=== PATIENT | female | born 1990 | race Caucasian/White ===

== ENCOUNTER 2020-07-15 23:25 | Inpatient (IN) | payer OTHER ==
[2020-07-16] MEDS ORDERED: ELECTROLYTE-148 SOLN 500 ML IV ONE
[2020-07-16] MEDS ORDERED: ELECTROLYTE-148 SOLN 1,000 ML IV SCH ×3 (01:00→20:30)
[2020-07-16] MEDS ORDERED: PROMETHAZINE HCL 25 MG/1 ML VIAL IVPB ONE (01:55)
[2020-07-16] MEDS ORDERED: BUTORPHANOL TARTRATE 2 MG/ML VIAL IVPB ONE (01:55)
[2020-07-16] MEDS ORDERED: BUTORPHANOL TARTRATE 2 MG/ML VIAL ONE (02:05)
[2020-07-16] MEDS ORDERED: PROMETHAZINE HCL 25 MG/1 ML VIAL ONE (02:06)
[2020-07-16] MEDS ORDERED: AMPICILLIN - 2 GM in SODIUM CHLORIDE 100 ML IVPB ONE (08:54)
[2020-07-16] MEDS ORDERED: FENTANYL/BUPIVACAINE/NS/PF - PCEA - 50 ML DISP.SYRIN EP ONE ×3 (08:57→17:24)
[2020-07-16] MEDS ORDERED: SODIUM CHLORIDE 100 ML IVPB ONE ×3 (08:57→16:22)
[2020-07-16] MEDS ORDERED: PCA PUMP NR ONE ×3 (08:57→20:48)
[2020-07-16] MEDS ORDERED: AMPICILLIN SODIUM 2 GM VIAL ONE (08:57)
[2020-07-16 09:37] LABS: BASO % 0.2 % (0-2.0); HEMATOCRIT 33.9 % (32.4-45.2); HEMOGLOBIN 11.2 GM/dL (10.7-15.3); LYMPH % 5.5 % (8-40); MCH 27.2 pg (25.7-33.7); MEAN CELL VOLUME 82.3 fl (80-96); MEAN PLT VOLUME 7.6 fl (7.5-11.1); MONO % 2.4 % (3.8-10.2); NEUT % 91.9 % (42.8-82.8); PLATELET COUNT 291 K/MM3 (134-434); RBC 4.12 M/mm3 (3.60-5.2); RDW 14.5 % (11.6-15.6); WHITE BLOOD COUNT 14.2 K/mm3 (4.0-10.0)
[2020-07-16 09:45] LABS: INR 0.92 (0.83-1.09); PROTHROMBIN TIME (PATIENT) 11.3 SEC (9.7-13.0)
[2020-07-16] MEDS: FENTANYL/BUPIVACAINE/NS/PF - PCEA - 50 ML DISP.SYRIN EP SCH ×3 (09:45→17:36)
[2020-07-16 09:48] LABS: ACTIVATED PTT 25.9 SECONDS (25.2-36.5)
[2020-07-16 09:57] LABS: POTASSIUM 3.5 mmol/L (3.5-5.1)
[2020-07-16 10:00] LABS: CALCIUM 8.4 mg/dL (8.5-10.1)
[2020-07-16 10:03] LABS: CREATININE 0.6 mg/dL (0.55-1.3)
[2020-07-16 10:10] VITALS: BMI 29.4
[2020-07-16] MEDS: ELECTROLYTE-148 SOLN 1,000 ML IV SCH ×2 (10:20→15:20)
[2020-07-16] MEDS ORDERED: NALOXONE HCL 0.4 MG/ML VIAL IVPUSH PRN (10:42)
[2020-07-16 11:45] LABS: ANISOCYTOSIS 0; MACROCYTOSIS 0; PLATELET ESTIMATE NORMAL
[2020-07-16] MEDS ORDERED: AMPICILLIN SODIUM 1 GM VIAL ONE ×2 (12:38→16:22)
[2020-07-16] MEDS: AMPICILLIN - 1 GM in SODIUM CHLORIDE 100 ML IVPB SCH ×2 (12:47→16:30)
[2020-07-16] MEDS ORDERED: BUPIVACAINE HCL/PF 0.25% (2.5MG/ML) 10 ML VIAL ONE ×3 (13:51→18:10)
[2020-07-16] MEDS ORDERED: CITRIC ACID/SODIUM CITRATE 30 ML UNIT-DOSE CUP PO ONE (20:31)
[2020-07-16] MEDS ORDERED: CEFAZOLIN 2 GM/D5W 2 GM/50 ML ML IVPB ONE (20:47)
[2020-07-16] MEDS ORDERED: OXYTOCIN 20 UNITS in 0.9% NS 20 UNIT/1,000 ML INFUS.BAG IV ONE ×2 (20:48→23:49)
[2020-07-16] MEDS ORDERED: LIDO 2%/EPI 1:200000 PRESRVFRE (20 ML SDVIAL) ONE (20:48)
[2020-07-16] MEDS ORDERED: ONDANSETRON 4 MG/2 ML VIAL ONE (21:00)
[2020-07-16] MEDS ORDERED: KETOROLAC TROMETHAMINE 30 MG/1 ML VIAL ONE (21:00)
[2020-07-16] MEDS ORDERED: morphine SULFATE/PF 0.5 MG/ML (2cc Syringe - QUVA) ONE ×3 (21:06)
[2020-07-16] MEDS ORDERED: OXYTOCIN 10 UNITS/ML VIAL ONE (21:11)
[2020-07-16 21:51] LABS: CORD BASE EXCESS -2.3 mmol/L (0-2); CORD HCO3 23.7 mmHg (20-29); CORD PCO2 44.9 mmHg (30-78); CORD pH 7.34 (7.14-7.44)
[2020-07-16] MEDS ORDERED: METHYLERGONOVINE MALEATE 0.2 MG/1 ML AMP IM PRN (21:54)
[2020-07-16] MEDS ORDERED: IBUPROFEN 800 MG/8 ML IJ IVPB PRN (21:54)
[2020-07-16] MEDS ORDERED: oxyCODONE HCL 5 MG TABLET PO PRN ×2 (21:54)
[2020-07-16] MEDS ORDERED: BENZOCAINE 20% 57 GM BOTTLE TP PRN (21:54)
[2020-07-16] MEDS ORDERED: diphenhydrAMINE HCL 25 MG CAPSULE (FP) PO PRN (21:54)
[2020-07-16] MEDS ORDERED: IBUPROFEN 600 MG TABLET (FP) PO PRN (21:54)
[2020-07-16] MEDS ORDERED: WITCH HAZEL 50% (TUCKS) 40 PAD/JAR PAD TP PRN (21:54)
[2020-07-16] MEDS ORDERED: BENZOCAINE 28 GM HEMORRHOIDAL OINTMENT PR PRN (21:54)
[2020-07-16] MEDS ORDERED: ONDANSETRON 4 MG/2 ML VIAL IVPUSH PRN (21:58)
[2020-07-16] MEDS ORDERED: DEXTROSE 5%-LACTATED RINGERS 1,000 ML IV SCH (22:00)
[2020-07-16] MEDS ORDERED: OXYTOCIN 20 UNITS in 0.9% NS 20 UNIT/1,000 ML INFUS.BAG IV SCH (22:00)
[2020-07-16 22:13] LABS: CORD HCO3 23.4 mmHg (20-29); CORD PCO2 56.1 mmHg (30-78); CORD pH 7.239 (7.14-7.44)
[2020-07-17] MEDS: AMPICILLIN - 1 GM in SODIUM CHLORIDE 100 ML IVPB SCH (03:31)
[2020-07-17] MEDS: CEFAZOLIN 1 GM/D5W 1 GM/50 ML BAG IVPB SCH ×2 (05:58→14:33)
[2020-07-17 09:46] LABS: BASO % 0.3 % (0-2.0); EOS % 0.7 % (0-4.5); HEMATOCRIT 26.1 % (32.4-45.2); HEMOGLOBIN 8.7 GM/dL (10.7-15.3); LYMPH % 9.8 % (8-40); MCH 27.6 pg (25.7-33.7); MCHC 33.3 g/dl (32.0-36.0); MEAN CELL VOLUME 82.8 fl (80-96); MEAN PLT VOLUME 7.7 fl (7.5-11.1); MONO % 7.6 % (3.8-10.2); NEUT % 81.6 % (42.8-82.8); PLATELET COUNT 229 K/MM3 (134-434); RBC 3.15 M/mm3 (3.60-5.2); RDW 14.5 % (11.6-15.6); WHITE BLOOD COUNT 11.8 K/mm3 (4.0-10.0)
[2020-07-17] MEDS: ENOXAPARIN NA (PORCINE) 40 MG/0.4 ML DISP.SYRIN SQ SCH (11:13)
[2020-07-17] MEDS ORDERED: BISACODYL 10 MG SUPP.RECT PR PRN (21:54)
[2020-07-18] MEDS: FENTANYL/BUPIVACAINE/NS/PF - PCEA - 50 ML DISP.SYRIN EP SCH ×3 (06:58→07:00)
[2020-07-18] MEDS: ACETAMINOPHEN 325 MG TABLET (FP) PO PRN ×3 (09:49→21:03)
[2020-07-18] MEDS: ENOXAPARIN NA (PORCINE) 40 MG/0.4 ML DISP.SYRIN SQ SCH (09:50)
[2020-07-18] MEDS: SIMETHICONE 80 MG TAB.CHEW (FP) PO PRN (21:02)
[2020-07-18] MEDS ORDERED: SENNOSIDES/DOCUSATE COMBO (SENNA PLUS) TABLET (UD) PO PRN (22:00)
[2020-07-19] MEDS: SIMETHICONE 80 MG TAB.CHEW (FP) PO PRN (06:14)
[2020-07-19 08:37] LABS: BASO % 0.1 % (0-2.0); EOS % 3.8 % (0-4.5); HEMATOCRIT 30.7 % (32.4-45.2); HEMOGLOBIN 10.1 GM/dL (10.7-15.3); LYMPH % 7.8 % (8-40); MCH 27.2 pg (25.7-33.7); MCHC 33.1 g/dl (32.0-36.0); MONO % 6.7 % (3.8-10.2); NEUT % 81.6 % (42.8-82.8); PLATELET COUNT 290 K/MM3 (134-434); RBC 3.74 M/mm3 (3.60-5.2); RDW 14.8 % (11.6-15.6); WHITE BLOOD COUNT 11.5 K/mm3 (4.0-10.0)
[2020-07-19 09:39] VITALS: BP 121/76; PULSE 98; TEMP 98.1
[2020-07-19] MEDS: ENOXAPARIN NA (PORCINE) 40 MG/0.4 ML DISP.SYRIN SQ SCH (12:15)
== END 2020-07-19 13:25 | disposition home or self-care (01) | DRG 540 ==
LOC: JDEL 23:25 → JLDR 07-16 08:45 → J3W 07-17 00:01
PROVIDERS: ADMIT Obstetrics & Gynecology; ATTEND Obstetrics & Gynecology
PROC: 10D00Z1 Extraction of Products of Conception, Low, Open Approach (ICD-10-PCS; principal; 2020-07-16)
DX: O62.2 Other uterine inertia (principal); O69.81X0 Labor and delivery complicated by cord around neck, without compression, not applicable or unspecified; O99.824 Streptococcus B carrier state complicating childbirth; Z3A.39 39 weeks gestation of pregnancy; Z37.0 Single live birth; O90.81 Anemia of the puerperium; D64.9 Anemia, unspecified
CPT/HCPCS: 36415; 36600; 80048; 82803; 85025; 85610; 85730; 86780; 86850; 86900; 86901; 87389; 88307-TC; C9803; U0003